=== PATIENT | male | born 1975 | race Caucasian/White ===

== ENCOUNTER 2016-12-19 09:24 | Inpatient (IN) | payer MEDICAID, OTHER ==
[~2016-12-19] VITALS: Ht 167.6 cm; Wt 86.1 kg
[2016-12-19] MEDS ORDERED: ESCI20TA PO (09:42)
[2016-12-19] MEDS ORDERED: BENZ1TAB10 PO (09:42)
[2016-12-19] MEDS ORDERED: OLAN2.5T3 PO (09:42)
[2016-12-19] MEDS ORDERED: LAMO100 PO (09:42)
[2016-12-19 10:54] LABS: BASOPHILS % (AUTO) 0.5 % (0.0-2.0); EOSINOPHILS % (AUTO) 0.1 % (1.0-6.0); HEMATOCRIT 40.6 % (41-53); HEMOGLOBIN 13.4 g/dL (13.5-17.5); LYMPHOCYTES # (AUTO) 1.4 K/uL (1.0-4.8); LYMPHOCYTES % (AUTO) 23.1 % (22.0-44.0); MEAN CORPUSCULAR HEMOGLOBIN 25.2 pg (26.0-34.0); MEAN CORPUSCULAR VOLUME 76 fL (80-100); MONOCYTES # (AUTO) 0.5 K/uL (0.1-1.0); MONOCYTES % (AUTO) 7.7 % (2.0-9.0); NEUTROPHILS # (AUTO) 4.2 K/uL (1.8-7.7); NEUTROPHILS % (AUTO) 68.6 % (40.0-70.0); PLATELET COUNT (AUTO) 265 K/uL (150-450); RED BLOOD CELL COUNT(AUTO) 5.32 MIL/uL (4.50-5.90); RED CELL DISTRIBUTION WIDTH 14.2 % (11.5-14.5); WHITE BLOOD COUNT (AUTO) 6.1 K/uL (4.5-11.0)
[2016-12-19 10:55] LABS: RBC MORPHOLOGY COMMENT ABNORMAL RBC MORPH
[2016-12-19] MEDS ORDERED: OLANZapine 5 MG RAPDIS TABLET PO PRN (11:00)
[2016-12-19] MEDS ORDERED: ZOLPIDEM TARTRATE 10 MG TABLET PO PRN (11:00)
[2016-12-19] MEDS ORDERED: LORazepam 2 MG TABLET PO PRN (11:00)
[2016-12-19 11:04] LABS: ANION GAP 8 mmol/L (8-16); CALCIUM, TOTAL 8.8 mg/dL (8.8-10.5); CARBON DIOXIDE 27 mmol/L (22-29); CHLORIDE 105 mmol/L (98-107); CREATININE 0.91 mg/dL (0.60-1.30); GLOMERULAR FILTR. RATE CALC > 60 mL/min (>60); POTASSIUM 4.3 mmol/L (3.5-5.1); SODIUM SERUM 140 mmol/L (136-145); UREA NITROGEN, BLOOD 16 mg/dL (7-18)
[2016-12-19 11:14] LABS: ALANINE AMINOTRANSFERASE 24 U/L (12-78); ALBUMIN 3.8 g/dL (3.4-5.0); ASPARTATE AMINOTRANSFERASE 15 U/L (15-37); BILIRUBIN,TOTAL 0.3 mg/dL (0.1-1.0); TOTAL PROTEIN, SERUM 7.1 g/dL (6.4-8.2)
[2016-12-19] MEDS ORDERED: PROMETHAZINE HCL 25 MG TABLET PO PRN (12:00)
[2016-12-19] MEDS ORDERED: MAGNESIUM HYDROXIDE SUSPENSION 30 ML UDCUP PO PRN (12:00)
[2016-12-19] MEDS ORDERED: HydrOXYzine PAMOATE 50 MG CAPSULE PO PRN (12:00)
[2016-12-19] MEDS ORDERED: GuaiFENesin/D-METHORPHAN [SUGAR-FREE] 200-20MG/10 ML SYRUP UDCUP PO PRN (12:00)
[2016-12-19] MEDS ORDERED: LOPERAMIDE HCL 2 MG CAPSULE PO PRN (12:00)
[2016-12-19] MEDS ORDERED: ACETAMINOPHEN 325 MG TABLET PO PRN (12:00)
[2016-12-19] MEDS ORDERED: TUBERCULIN, PURIFIED PROTEIN DERIVATIVE 5 TU/0.1 ML SYG ID ONE (12:00)
[2016-12-19] MEDS ORDERED: OLAN7.5T2 PO (12:06)
[2016-12-19] MEDS ORDERED: OLANZapine 5 MG RAPDIS TABLET PO SCH (21:00)
[2016-12-19 22:01] VITALS: BP 138/82
[2016-12-19] MEDS: DIVALPROEX SODIUM 500 MG ER TABLET PO SCH (22:09)
[2016-12-20 02:03] LABS: APPEARANCE,URINE CLEAR (CLEAR); GLUCOSE, URINE (UA) NEGATIVE (NEGATIVE); KETONES,URINE NEGATIVE (NEGATIVE); LEUKOCYTE ESTERASE ,URINE NEGATIVE (NEGATIVE); OCCULT BLOOD,URINE NEGATIVE (NEGATIVE); PH,URINE 5.5 (5.0-8.0); PROTEIN,URINE NEGATIVE (NEGATIVE)
[2016-12-20 02:10] LABS: ADD UA MICROSCOPIC NO
[2016-12-20 06:56] LABS: CHOL/HDL RATIO 5.4 (4.2-7.3)
[2016-12-20 08:41] VITALS: BP 124/88
[2016-12-20] MEDS ORDERED: FLUoxetine HCL 20 MG CAPSULE PO SCH (09:00)
[2016-12-20] MEDS: MULTIVITAMINS WITH MINERALS, THERAPEUTIC TABLET PO SCH (09:24)
[2016-12-20] MEDS: FOLIC ACID 1 MG TABLET PO SCH (09:25)
[2016-12-20] MEDS: THIAMINE HCL 100 MG TABLET PO SCH ×2 (09:26→16:15)
[2016-12-20 17:20] VITALS: BP 124/77
[2016-12-20] MEDS: DIVALPROEX SODIUM 500 MG ER TABLET PO SCH (20:14)
[2016-12-20] MEDS: OLANZapine 10 MG RAPDIS TABLET PO SCH (20:14)
[2016-12-21 08:00] VITALS: BP 113/73
[2016-12-21] MEDS: MULTIVITAMINS WITH MINERALS, THERAPEUTIC TABLET PO SCH (09:18)
[2016-12-21] MEDS: SERTRALINE HCL 50 MG TABLET PO SCH (09:18)
[2016-12-21] MEDS: FOLIC ACID 1 MG TABLET PO SCH (09:18)
[2016-12-21] MEDS: THIAMINE HCL 100 MG TABLET PO SCH ×2 (09:18→16:23)
[2016-12-21 17:00] VITALS: BP 118/78
[2016-12-21] MEDS: OLANZapine 10 MG RAPDIS TABLET PO SCH (20:13)
[2016-12-21] MEDS: DIVALPROEX SODIUM 500 MG ER TABLET PO SCH (20:13)
[2016-12-22 08:00] VITALS: BP 125/90
[2016-12-22] MEDS: FOLIC ACID 1 MG TABLET PO SCH (09:02)
[2016-12-22] MEDS: THIAMINE HCL 100 MG TABLET PO SCH ×2 (09:02→17:56)
[2016-12-22] MEDS: SERTRALINE HCL 50 MG TABLET PO SCH (09:02)
[2016-12-22] MEDS: MULTIVITAMINS WITH MINERALS, THERAPEUTIC TABLET PO SCH (09:02)
[2016-12-22 16:30] VITALS: BP 122/75
[2016-12-22] MEDS ORDERED: SERT100T12 PO (17:38)
[2016-12-22] MEDS ORDERED: OLAN10TA22 PO (17:38)
[2016-12-22] MEDS ORDERED: DIVA500T52 PO (17:38)
[2016-12-22] MEDS: DIVALPROEX SODIUM 500 MG ER TABLET PO SCH (20:42)
[2016-12-22] MEDS: OLANZapine 10 MG RAPDIS TABLET PO SCH (20:42)
[2016-12-23] MEDS ORDERED: SERTRALINE HCL 100 MG TABLET PO SCH (09:00)
[2016-12-23] MEDS: FOLIC ACID 1 MG TABLET PO SCH (09:17)
[2016-12-23] MEDS: MULTIVITAMINS WITH MINERALS, THERAPEUTIC TABLET PO SCH (09:17)
[2016-12-23] MEDS: THIAMINE HCL 100 MG TABLET PO SCH (09:18)
[2016-12-23 11:05] VITALS: BP 126/86
== END 2016-12-23 13:30 | disposition home or self-care (01) | DRG 750 ==
LOC: EMS 09:26 → AHU 12:21 → 3EI 21:14
PROVIDERS: ADMIT Psychiatry & Neurology Psychiatry; ATTEND Psychiatry & Neurology Psychiatry
DX: F25.9 Schizoaffective disorder, unspecified (principal); G93.41 Metabolic encephalopathy; R45.850 Homicidal ideations
CPT/HCPCS: 99285; G0480